=== PATIENT | female | born 1985 | race Caucasian/White ===

== ENCOUNTER 2019-07-31 21:17 | Emergency (ER) | payer SELFPAY ==
[~2019-07-31] VITALS: Ht 157.5 cm; Wt 102.3 kg
[~2019-07-31 21:17] MED LIST: PREN1TAB52 PO
[2019-07-31] MEDS ORDERED: DiphenhydrAMINE HCL 50 MG/ML VIAL IVP ONE (23:30)
[2019-07-31] MEDS ORDERED: MethylPREDNISolone SOD SUCC 125 MG/2 ML VIAL IVP ONE (23:30)
[2019-08-01 01:44] VITALS: BP 151/98
== END 2019-08-01 02:05 | disposition home or self-care (01) ==
LOC: EMS 21:18
DX: L50.9 Urticaria, unspecified (principal); I10 Essential (primary) hypertension
CPT/HCPCS: 81025; 96374; 96375; 99283; J1200; J2930